=== PATIENT | female | born 1995 | race Caucasian/White ===

== ENCOUNTER → 2020-04-05 | Outpatient (CLI) | payer BC | END | disposition home or self-care (01) | LOC: LAB SHORT 14:09 → OLS 14:09 | DX: L70.0 Acne vulgaris (principal); Z79.899 Other long term (current) drug therapy | CPT/HCPCS: 81025 ==

== ENCOUNTER → 2020-05-16 | Outpatient (CLI) | payer BC | END | disposition home or self-care (01) | LOC: LAB SHORT 12:28 → OLS 12:28 → LAB FUT 05-15 16:30 → EDSTATUS 05-15 16:30 | DX: L70.0 Acne vulgaris (principal); Z79.899 Other long term (current) drug therapy | CPT/HCPCS: 81025 ==